=== PATIENT | female | born 1955 | race African-American/Black ===

== ENCOUNTER 2022-04-20 04:14 | Observation (INO) | payer MEDICARE ==
[2022-04-20] MEDS ORDERED: Lorazepam 0.5 MG TAB PO PRN (05:24)
[2022-04-20] MEDS ORDERED: hydrALAZINE 20 MG/ML VIAL SLOW IVP PRN (05:29)
[2022-04-20] MEDS ORDERED: Acetaminophen 325 MG Suppository PR PRN (05:29)
[2022-04-20] MEDS ORDERED: Dextrose 50% Abboject 50 ML SYRINGE SLOW IVP PRN (05:29)
[2022-04-20] MEDS ORDERED: HumaLOG 300 UNITS/3 ML VIAL SC PRN ×2 (05:29)
[2022-04-20] MEDS ORDERED: Dextrose 5% in Water 1,000 ML IV PRN (05:29)
[2022-04-20] MEDS ORDERED: Ondansetron PF 4 MG/2 ML Vial IVP PRN (05:29)
[2022-04-20] MEDS ORDERED: Ondansetron ODT 4 MG TAB PO PRN (05:29)
[2022-04-20] MEDS ORDERED: Acetaminophen 325 MG TAB PO PRN (05:29)
[2022-04-20] MEDS ORDERED: Aspirin 81 mg Enteric Coated Tablet PO SCH (05:45)
[2022-04-20] MEDS ORDERED: FLU VACC QS2022-23(65YR UP)/PF 240 MCG/0.7 ML SYRINGE IM ONE (09:00)
[2022-04-20] MEDS ORDERED: Aspirin 325 MG TAB PO SCH (09:00)
[2022-04-20] MEDS: Aspirin 81 mg Enteric Coated Tablet PO SCH (09:04)
[2022-04-20] MEDS ORDERED: Iopamidol-370 76% 500 ML 1 ML ONE (15:32)
[2022-04-20] MEDS: Dextrose 10% in Water 1,000 ML IV SCH (16:29)
[2022-04-21 05:56] LABS: #Eosinphils 0.1 thou/uL (0.0-0.7); #Lymphocytes 1.4 thou/uL (1.20-3.40); #Monocytes 0.3 thou/uL (0.11-0.59); %Basophils 0.9 % (0.0-1.0); %Lymphocytes 37.2 % (21.0-51.0); %Monocytes 7.4 % (0.0-10.0); %Neutrophils 52.5 % (42.0-75.0); Hemoglobin 13.5 g/dL (12.0-16.0); Mean Corpuscular Hemoglobin 29.3 pg (27.0-31.0); Mean Corpuscular Volume 91.6 fL (78.0-98.0); Mean Platelet Volume 9.3 fL (7.4-10.4); Platelet Count 173 thou/uL (130-400); RBC Distribution Width 12.2 % (11.5-14.5); White Blood Cell (WBC) Count 3.8 thou/uL (4.8-10.8)
[2022-04-21 06:20] LABS: Anion Gap 12 mmol/L (10-20); BUN (Urea Nitrogen) 16 mg/dL (9.8-20.1); Calc. Creatinine Clearance 0 mL/min (70-130); Calcium 9.2 mg/dL (7.8-10.44); Carbon Dioxide 26 mmol/L (23-31); Cardiac Risk 3.1 (Less than 4.5); Chloride 100 mmol/L (98-107); Cholesterol 180 mg/dl (< 200 Desired); Estimated GFR 66; Glucose 213 mg/dL (80-115); HDL Cholesterol 59 mg/dL (>60 Neg Risk); LDL Cholesterol, Calculated 105 mg/dL; Potassium 3.9 mmol/L (3.5-5.1); Sodium 134 mmol/L (136-145); Triglycerides 79 mg/dL (Less than 150)
[2022-04-21 06:26] LABS: Hemoglobin A1c 5.8 % (4.0-6.0)
[2022-04-21] MEDS: Aspirin 81 mg Enteric Coated Tablet PO SCH (08:41)
[2022-04-21] MEDS ORDERED: Cyanocobalamin (Vitamin B-12) 1,000 MCG TAB PO SCH (09:00)
[2022-04-21] MEDS ORDERED: Lisinopril 5 MG TAB PO SCH (09:00)
[2022-04-21] MEDS ORDERED: Hydrochlorothiazide 25 MG TAB PO SCH (09:00)
[2022-04-21] MEDS: Dextrose 10% in Water 1,000 ML IV SCH (09:17)
[2022-04-21 12:23] VITALS: BP 117/80; TEMP 97.6; BMI 25.7
== END 2022-04-21 16:35 | disposition home or self-care (01) ==
LOC: NEURO 04:25
PROVIDERS: ADMIT Hospitalist; ATTEND Hospitalist
DX: G93.41 Metabolic encephalopathy (principal); E11.649 Type 2 diabetes mellitus with hypoglycemia without coma; F03.90 Unspecified dementia, unspecified severity, without behavioral disturbance, psychotic disturbance, mood disturbance, and anxiety; I67.2 Cerebral atherosclerosis; I65.23 Occlusion and stenosis of bilateral carotid arteries; I08.1 Rheumatic disorders of both mitral and tricuspid valves; Z79.84 Long term (current) use of oral hypoglycemic drugs; Z79.899 Other long term (current) drug therapy; Z20.822 Contact with and (suspected) exposure to COVID-19
CPT/HCPCS: 70496; 80048; 80061; 82962 ×2; 83036; 85025; 93306; 93880; 97116; U0003; U0005; 36415; 36416; G0378; J1815; Q9967